=== PATIENT | female | born 1980 | race Caucasian/White ===

== ENCOUNTER 2017-11-26 20:27 | Emergency (ER) | payer MEDICAID ==
[~2017-11-26] VITALS: Ht 175.3 cm; Wt 73.0 kg
[2017-11-26 21:15] VITALS: BP 124/89
== END 2017-11-26 22:30 | disposition left against medical advice (07) ==
LOC: ER 20:27
DX: M25.531 Pain in right wrist (principal); R50.9 Fever, unspecified; Z53.21 Procedure and treatment not carried out due to patient leaving prior to being seen by health care provider; W45.8XXA Other foreign body or object entering through skin, initial encounter; Y93.89 Activity, other specified; Y92.89 Other specified places as the place of occurrence of the external cause; Y99.8 Other external cause status

== ENCOUNTER 2019-07-26 14:13 | Emergency (ER) | payer MEDICAID ==
[~2019-07-26] VITALS: Ht 177.8 cm; Wt 64.0 kg
[2019-07-26] MEDS ORDERED: LIDOCAINE 1% HCL (LOCAL ANESTH.) INJ 20ML MDV IJ ONE (16:45)
[2019-07-26] MEDS ORDERED: cefTRIAXone W LIDOCAINE 1 GM IM IM ONE (18:00)
[2019-07-26] MEDS ORDERED: cefTRIAXone SOD 1,000 MG VL ONE (18:17)
[2019-07-26 18:19] LABS: Basophils # (auto) 0 uL; Basophils % (auto) 0.9 % (0.0-2.0); Eosinophils # (auto) 0.1 uL; Eosinophils % (auto) 3.5 % (0.0-7.0); Hematocrit 37.5 % (36.0-46.0); Hemoglobin 12.7 g/dL (12.2-16.2); Lymphocytes # (auto) 1.3 uL; Lymphocytes % (auto) 31.1 % (10.0-50.0); Mean Corpuscular Hemoglobin 31.4 pg (28.0-32.0); Mean Corpuscular Hgb Conc. 33.8 g/dL (32.0-36.0); Mean Corpuscular Volume 93.2 fL (80.0-100.0); Monocytes # (auto) 0.4 uL; Monocytes % (auto) 9.3 % (0.0-12.0); Neutrophils # (auto) 2.3 uL; Neutrophils % (auto) 55.2 % (37.0-80.0); Nucleated Red Blood Cells % 0.1 %; Platelet Count (auto) 206 10^3/uL (140-450); Red Blood Cells 4.02 10^6/uL (4.0-5.20); Red Cell Distribution Width 12.8 % (11.8-14.3); White Blood Cell 4.2 10^3/uL (4.4-10.8)
[2019-07-26 18:54] LABS: Albumin 4.3 g/dL (3.4-5.0); BUN/Creatinine Ratio 10.5; Calcium 9.4 mg/dL (8.5-10.1); Potassium 4.1 mmol/L (3.5-5.1)
[2019-07-26 18:55] LABS: Salicylate 1.9 mg/dL (2.8-20.0)
[2019-07-26 18:56] LABS: Bilirubin, Total 0.4 mg/dL (0.2-1.0)
[2019-07-26 18:58] LABS: Acetaminophen < 2.0 ug/mL (10-30)
[2019-07-26 19:16] LABS: Urine Bacteria FEW /hpf (None Seen); Urine Blood Negative /uL (Negative); Urine Specific Gravity 1.005 (1.001-1.035); Urine WBC 1 /hpf (0 - 5)
[2019-07-26 19:17] VITALS: BP 130/81
[2019-07-26 19:27] LABS: Alcohol, Urine < 3.0 mg/dL (0-5); Amphetamine Screen, Urine NEGATIVE (NEGATIVE); Barbiturate Scree,Urine NEGATIVE (NEGATIVE); Benzodiazephine Screen, Urine NEGATIVE (NEGATIVE); Cannabinoid Screen, Urine NEGATIVE (NEGATIVE); Cocaine Screen, Urine NEGATIVE (NEGATIVE); Opiate Scree,Urine NEGATIVE (NEGATIVE); Phencyclidine Screen, Urine NEGATIVE (NEGATIVE)
== END 2019-07-26 20:04 | disposition home or self-care (01) ==
LOC: ER 14:13
DX: S51.821A Laceration with foreign body of right forearm, initial encounter (principal); X58.XXXA Exposure to other specified factors, initial encounter; Y93.89 Activity, other specified; Y99.8 Other external cause status; Y92.89 Other specified places as the place of occurrence of the external cause
CPT/HCPCS: 12031; 36415; 73090; 80053; 80307; 80329; 81001; 85025; 96372; 99284; J0696; 12001

== ENCOUNTER 2019-08-08 15:06 | Emergency (ER) | payer MEDICAID ==
[~2019-08-08] VITALS: Ht 177.8 cm; Wt 67.2 kg
[2019-08-08] MEDS ORDERED: LIDOCAINE HCL 2 % INJ 2ML MPF NEB ONE (18:45)
[2019-08-08] MEDS ORDERED: LIDOCAINE 1% HCL (LOCAL ANESTH.) INJ 20ML MDV ID ONE (20:00)
[2019-08-08] MEDS ORDERED: LORazepam 0.5 MG TAB PO ONE (20:00)
[2019-08-08] MEDS ORDERED: TETANUS-DIPTH-ACEL PERTUSSIS 0.5ML SYRG IM ONE (22:00)
[2019-08-08] MEDS ORDERED: cefTRIAXone SOD 1,000 MG VL IM ONE (22:45)
[2019-08-08] MEDS ORDERED: NEOMYCIN-BACITRACIN-POLYM UNITDOSE PKG TOP OINT TOP ONE (22:45)
[2019-08-08 23:28] LABS: Basophils # (auto) 0 uL; Basophils % (auto) 0.8 % (0.0-2.0); Eosinophils # (auto) 0.1 uL; Eosinophils % (auto) 3.8 % (0.0-7.0); Hematocrit 36.5 % (36.0-46.0); Hemoglobin 12.3 g/dL (12.2-16.2); Lymphocytes # (auto) 1.3 uL; Lymphocytes % (auto) 34.5 % (10.0-50.0); Mean Corpuscular Hemoglobin 31.6 pg (28.0-32.0); Mean Corpuscular Hgb Conc. 33.7 g/dL (32.0-36.0); Mean Corpuscular Volume 93.9 fL (80.0-100.0); Monocytes # (auto) 0.3 uL; Monocytes % (auto) 8.6 % (0.0-12.0); Neutrophils % (auto) 52.3 % (37.0-80.0); Nucleated Red Blood Cells % 0.1 %; Platelet Count (auto) 200 10^3/uL (140-450); Red Blood Cells 3.89 10^6/uL (4.0-5.20); White Blood Cell 3.8 10^3/uL (4.4-10.8)
[2019-08-08 23:49] LABS: Albumin 3.7 g/dL (3.4-5.0); BUN/Creatinine Ratio 9.9; Calcium 8.4 mg/dL (8.5-10.1); Magnesium 2.1 mg/dL (1.6-2.6); Potassium 3.5 mmol/L (3.5-5.1); Salicylate 1.9 mg/dL (2.8-20.0)
[2019-08-08 23:52] LABS: Bilirubin, Total 0.5 mg/dL (0.2-1.0); Total Protein 6.9 g/dL (6.4-8.2)
[2019-08-08 23:56] LABS: Acetaminophen < 2.0 ug/mL (10-30)
[2019-08-09 00:50] LABS: Urine Bacteria MOD /hpf (None Seen); Urine Blood Negative /uL (Negative); Urine Specific Gravity 1.008 (1.001-1.035); Urine WBC 1 /hpf (0 - 5)
[2019-08-09 01:07] LABS: Alcohol, Urine < 3.0 mg/dL (0-5); Amphetamine Screen, Urine NEGATIVE (NEGATIVE); Barbiturate Scree,Urine NEGATIVE (NEGATIVE); Benzodiazephine Screen, Urine NEGATIVE (NEGATIVE); Cannabinoid Screen, Urine NEGATIVE (NEGATIVE); Cocaine Screen, Urine NEGATIVE (NEGATIVE); Opiate Scree,Urine NEGATIVE (NEGATIVE); Phencyclidine Screen, Urine NEGATIVE (NEGATIVE)
[2019-08-09] MEDS ORDERED: BENZTROPINE MESY 0.5 MG TAB PO ONE (22:00)
[2019-08-09] MEDS ORDERED: OLANZapine 5 MG TAB PO ONE (22:00)
[2019-08-10] MEDS ORDERED: LORazepam 0.5 MG TAB ONE (00:35)
[2019-08-10] MEDS ORDERED: LORazepam 0.5 MG TAB PO ONE (01:00)
[2019-08-10 15:22] VITALS: BP 122/66
== END 2019-08-10 15:56 | disposition psychiatric hospital, planned readmission (93) ==
LOC: ER 15:06 → EDBD 15:06 → ER 08-10 15:56
DX: S50.851A Superficial foreign body of right forearm, initial encounter (principal); F32.9 Major depressive disorder, single episode, unspecified; F20.9 Schizophrenia, unspecified; W45.8XXA Other foreign body or object entering through skin, initial encounter; Y93.89 Activity, other specified; Y99.8 Other external cause status; Y92.89 Other specified places as the place of occurrence of the external cause
CPT/HCPCS: 10120; 36415; 73090; 80053; 80307; 80329; 81001; 81025; 83735; 85025; 90715; 94761; 96372; 99291; J0696; J2001

== ENCOUNTER → 2019-12-28 | Emergency (ER) | payer MEDICAID ==
[~2019-12-28] VITALS: Ht 172.7 cm; Wt 85.7 kg
[~2019-12-28] MED LIST: ACETAMINOPHEN 500 MG TAB PO ONE; DOCU1CAP31 PO; FAMO-12 PO; LAMO200T34 PO; MIRT1TAB38 PO; OLAN20TA30 PO; RISP2TAB62 PO
[2019-12-28 18:41] LABS: Basophils # (auto) 0 10 ^3/uL (0-0.2); Basophils % (auto) 0.7 % (0.0-2.0); Eosinophils # (auto) 0.3 10 ^3/uL (0-0.8); Eosinophils % (auto) 5.4 % (0.0-7.0); Hematocrit 39.9 % (36.0-46.0); Hemoglobin 13.5 g/dL (12.2-16.2); Lymphocytes # (auto) 1.2 10 ^3/uL (0.4-5.4); Mean Corpuscular Hemoglobin 31.9 pg (28.0-32.0); Mean Corpuscular Hgb Conc. 33.8 g/dL (32.0-36.0); Mean Corpuscular Volume 94.4 fL (80.0-100.0); Monocytes # (auto) 0.5 10 ^3/uL (0-1.3); Monocytes % (auto) 8.9 % (0.0-12.0); Neutrophils # (auto) 3.2 10 ^3/uL (1.6-8.6); Nucleated Red Blood Cells % 0.1 %; Platelet Count (auto) 199 10^3/uL (140-450); Red Blood Cells 4.22 10^6/uL (4.0-5.20); Red Cell Distribution Width 13.1 % (11.8-14.3); White Blood Cell 5.2 10^3/uL (4.4-10.8)
[2019-12-28 18:58] LABS: Anion Gap 4 (5-15); Blood Urea Nitrogen 12 mg/dL (7-18); Calcium 8.9 mg/dL (8.5-10.1); Carbon Dioxide 26 mmol/L (21-32); Chloride 108 mmol/L (98-107); Glucose 83 mg/dL (74-106); Potassium 3.9 mmol/L (3.5-5.1); Sodium 138 mmol/L (136-145)
[2019-12-28 19:00] LABS: BUN/Creatinine Ratio 14.6; Blood Alcohol < 3.0 mg/dL (0-5); GFR African American 100 mL/min; GFR Non-African American 82 mL/min
[2019-12-28 19:07] LABS: Salicylate 2.8 mg/dL (2.8-20.0)
[2019-12-28 19:20] LABS: Acetaminophen < 2.0 ug/mL (10-30)
[2019-12-29 00:40] LABS: Alcohol, Urine < 3.0 mg/dL (0-5); Amphetamine Screen, Urine NEGATIVE (NEGATIVE); Barbiturate Scree,Urine NEGATIVE (NEGATIVE); Benzodiazephine Screen, Urine NEGATIVE (NEGATIVE); Cannabinoid Screen, Urine NEGATIVE (NEGATIVE); Cocaine Screen, Urine NEGATIVE (NEGATIVE); Opiate Scree,Urine NEGATIVE (NEGATIVE); Phencyclidine Screen, Urine NEGATIVE (NEGATIVE)
[2020-01-01 09:25] VITALS: BP 134/81
== END | disposition home or self-care (01) ==
LOC: EDUNIT# 17:18 → EDBD 17:29 → ER 17:29
DX: R45.851 Suicidal ideations (principal); S61.511A Laceration without foreign body of right wrist, initial encounter; F31.9 Bipolar disorder, unspecified; F20.9 Schizophrenia, unspecified; X83.8XXA Intentional self-harm by other specified means, initial encounter; Y93.89 Activity, other specified; Y92.89 Other specified places as the place of occurrence of the external cause; Y99.8 Other external cause status
CPT/HCPCS: 36415; 80048; 80307; 80320; 80329; 85025

== ENCOUNTER → 2022-11-14 | Outpatient (CLI) | payer MEDICAID ==
[~2022-11-14] VITALS: Ht 177.8 cm; Wt 72.6 kg
[~2022-11-14] MED LIST changes: -ACETAMINOPHEN 500 MG TAB PO ONE; +ADENOSINE 61 MG in GIVE UN-DILUTED 0 ML IV ONE; +ADENOSINE 90 MG/30 ML INJ IV ONE; +DOCU1CAP22 PO; -DOCU1CAP31 PO
== END | disposition home or self-care (01) ==
LOC: Rad HDHVI 09:23
PROVIDERS: ATTEND Internal Medicine Cardiovascular Disease
DX: Z01.810 Encounter for preprocedural cardiovascular examination (principal); F17.210 Nicotine dependence, cigarettes, uncomplicated
CPT/HCPCS: 78452; 93005; 96374; 96375; A9500; J0153

== ENCOUNTER → 2022-11-16 | Outpatient (CLI) | payer MEDICAID ==
[~2022-11-16] MED LIST changes: -ADENOSINE 61 MG in GIVE UN-DILUTED 0 ML IV ONE; -ADENOSINE 90 MG/30 ML INJ IV ONE
== END | disposition home or self-care (01) ==
LOC: Rad HDHVI 15:56
PROVIDERS: ATTEND Internal Medicine Cardiovascular Disease
DX: Z01.818 Encounter for other preprocedural examination (principal)
CPT/HCPCS: 93306

== ENCOUNTER 2025-05-13 15:12 | Emergency (ER) | payer MEDICAID ==
[~2025-05-13] VITALS: Ht 177.8 cm; Wt 61.5 kg
[~2025-05-13 15:12] MED LIST changes: +DOCU-209 PO; -DOCU1CAP22 PO; +OLAN1TAB75 PO; -OLAN20TA30 PO
[2025-05-13 15:14] VITALS: BP 146/84; PULSE 85; RESP 18; TEMP 98; O2SAT 97
[2025-05-13 15:52] LABS: Urine Budding Yeast OCCASIONAL /hpf (None Seen); Urine Protein, UAD Negative (Negative)
--- NOTE | 2025-05-13 16:20 | ED.PDOC ---
History of Present Illness HPI Comments This patient is a pleasant 45 y/o F, with PMHx of bipolar disorder, anxiety, and schizophrenia presents to the ED for CC of anorexia and mild weakness. Patient reports, that she lives in an in retirement and has been unable to eat d/t not having healthy options for the past three days. Patient presented with retirement staff, stated they would like patient to be evaluated for any physiologic concerns. Patient denies suicidal ideations, homicidal ideations, or auditory/visual hallucinations. No other symptoms or modifying factors present at this time. Vital signs were stable on arrival. Chief Complaint: Mental Health Time Seen by MD: 16:00 Primary Care Provider: THIAGOK Reviewed Notes: Nurses Notes, Medications, Allergies Allergies: Coded Allergies: NO KNOWN ALLERGIES (Unverified , 12/28/19) Home Meds Reported Medications Famotidine (Famotidine) 20 Mg Tab, 20 MG PO DAILY 12/30/19 Lamotrigine (Lamotrigine) 200 Mg Tab, 200 MG PO DAILY 12/30/19 Docusate Sodium (Dok) 100 Mg Cap, 100 MG PO DAILY 12/30/19 Mirtazapine (Mirtazapine Oral Disintegrating Tablet) 15 Mg Tab, 15 MG PO DAILY 12/30/19 Risperidone (Risperidone) 2 Mg Tab, 2 MG PO DAILY 12/30/19 Olanzapine (OLANZAPINE) 20 Mg Tab, 10 MG PO DAILY 12/30/19 Information Source: Patient, Scroll Assembler Mode of Arrival: Ambulatory Severity: Mild Timing: Days Duration: Since onset Prehospital treatment: None Past Medical History PAST MEDICAL HISTORY: Anxiety, Depression, Schizophrenia Surgical History: 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 Family History Family History: Unobtainable Social History Smoker: Cigarettes Alcohol: Denies ETOH Use Drugs: Denies Drug Use Lives In: Other Constitutional: reports: weakness; denies: chills, diaphoresis, fatigue, fever, malaise, sweats, others EENTM: denies: blurred vision, double vision, ear bleeding, ear discharge, ear drainage, ear pain, ear ringing, eye pain, eye redness, hearing loss, mouth pain, mouth swelling, nasal discharge, nose bleeding, nose congestion, nose pain, photophobia, tearing, throat pain, throat swelling, voice changes, others Respiratory: denies: cough, hemoptysis, orthopnea, SOB at rest, shortness of breath, SOB with excertion, stridor, wheezing, others Cardiovascular: denies: chest pain, dizzy spells, diaphoresis, Dyspnea on exertion, edema, irregular heart beat, left arm pain, lightheadedness, palpitations, PND, syncope, others Gastrointestinal: reports: poor appetite; denies: abdomen distended, abdominal pain, blood streaked bowels, constipated, diarrhea, dysphagia, difficulty swallowing, hematemesis, melena, nausea, poor fluid intake, rectal bleeding, rectal pain, vomiting, others Genitourinary: denies: abnormal vagina bleeding, burning, dyspareunia, dysuria, flank pain, frequency, hematuria, incontinence, pain, , vagina discharge, urgency, others Neurological: denies: dizziness, fainting, headache, left sided numbness, left sided weakness, numbness, paresthesia, pre-existing deficit, right sided numbness, right sided weakness, seizure, speech problems, tingling, tremors, weakness, others Musculoskeletal: denies: back pain, gout, joint pain, joint swelling, muscle pain, muscle stiffness, neck pain, others Integumetry: denies: bruises, change in color, change in hair/nails, dryness, laceration, lesions, lumps, rash, wounds, others Allergic/Immunocompromised: denies: Difficulty Healing, Frequent Infections, Hives, Itching, others Hematologic/Lymphatic: denies: anemia, blood clots, easy bleeding, easy bruising, swollen glands, others Endocrine: denies: excessive hunger, excessive sweating, excessive thirst, excessive urination, flushing, intolerance to cold, intolerance to heat, unexplained weight gain, unexplained weight loss, others Psychiatric: denies: anxiety, bipolar disorder, depression, hopeless, panic disorder, schizophrenia, sleepless, suicidal, others All Other Systems: Reviewed and Negative Physical Exam General Appearance: No Apparent Distress (Patient is seen mildly lethargic but was in no distress.), Normal HEENT: Normal ENT Inspection, Pharynx Normal, TMs Normal Neck: Full Range of Motion, Non-Tender, Normal, Normal Inspection Respiratory: Chest Non-Tender, Lungs Clear, No Accessory Muscle Use, No Respiratory Distress, Normal Breath Sounds Cardiovascular: No Edema, No JVD, No Murmur, No Gallop, Normal Peripheral Pulses, Regular Rate/Rhythm Breast Exam: Deferred Gastrointestinal: No Organomegaly, Non Tender, No Pulsatile Mass, Normal Bowel Sounds, Soft Genitalia: Deferred Pelvic: Deferred Rectal: Deferred Extremities: No calf tenderness, Normal capillary refill, Normal inspection, Normal range of motion, Non-tender, No pedal edema Neurologic: Alert Cerebellar Function: NOT DONE Reflexes: NOT DONE Skin: Dry, Normal Color, Warm Lymphatic: No Adenopathy Was a procedure done? Was a procedure done?: No Differential Dx Considerations may include: Anorexia, dehydration, electrolyte abnormality, sepsis, UTI X-Ray, Labs, Meds, VS Vital Signs Date Time Temp Pulse Resp B/P (MAP) Pulse Ox O2 Delivery O2 Flow Rate FiO2 05/13/25 15:14 98.0 85 18 146/84 97 98.0 Lab Test 05/13/25 15:58 05/13/25 15:23 Range/Units White Blood Count 5.3 4.4-10.8 10^3/uL Red Blood Count 4.13 4.0-5.20 10^6/uL Hemoglobin 12.9 12.2-16.2 g/dL Hematocrit 38.4 36.0-46.0 % Mean Corpuscular Volume 93.1 80.0-100.0 fL Mean Corpuscular Hemoglobin 31.3 28.0-32.0 pg Mean Corpuscular Hemoglobin Concent 33.6 32.0-36.0 g/dL Red Cell Distribution Width 13.1 11.8-14.3 % Platelet Count 227 140-450 10^3/uL Mean Platelet Volume 8.8 6.9-10.8 fL Neutrophils (%) (Auto) 67.2 37.0-80.0 % Lymphocytes (%) (Auto) 20.1 10.0-50.0 % Monocytes (%) (Auto) 8.4 0.0-12.0 % Eosinophils (%) (Auto) 4.2 0.0-7.0 % Basophils (%) (Auto) 0.1 0.0-2.0 % Neutrophils # (Auto) 3.6 1.6-8.6 10 ^3/uL Lymphocytes # (Auto) 1.1 0.4-5.4 10 ^3/uL Monocytes # (Auto) 0.4 0-1.3 10 ^3/uL Eosinophils # (Auto) 0.2 0-0.8 10 ^3/uL Basophils # (Auto) 0 0-0.2 10 ^3/uL Nucleated Red Blood Cells 0.0 % Sodium Level 138 136-145 mmol/L Potassium Level 4.6 3.5-5.1 mmol/L Chloride Level 106 98-107 mmol/L Carbon Dioxide Level 24 20-31 mmol/L Anion Gap 8 5-15 Blood Urea Nitrogen 9 9-23 mg/dL Creatinine 0.96 0.550-1.02 mg/dL Glomerular Filtration Rate Calc 74 >90 mL/min BUN/Creatinine Ratio 9.4 L 10.0-20.0 Serum Glucose 81 74-106 mg/dL Calcium Level 10.3 8.7-10.4 mg/dL Urine Color Light-yellow Yellow Urine Clarity Turbid H Clear Urine pH 5.5 5.0-9.0 Urine Specific [place] 1.005 1.001-1.035 Urine Protein Negative Negative Urine Ketones Negative Negative Urine Blood Negative Negative /uL Urine Nitrite Negative Negative Urine Bilirubin Negative Negative Urine Urobilinogen Normal Negative mg/dL Urine Leukocyte Esterase Negative Negative /uL Urine RBC <1 0 - 4 /hpf Urine Microscopic WBC 1 0-5 /HPF Urine Squamous Epithelial Cells Few <5 /hpf Urine Bacteria Few H None Seen /hpf Urine Yeast (Budding) Occasional None Seen /hpf Urine Glucose Normal Normal mg/dL X-Ray, Labs, Meds, VS Comment All studies performed the ED were evaluated by me personally. Laboratories and urinalysis were unremarkable for any systemic concerns. Spent time discussing the patient's concerns with her and her case management. Advised the case investigator that the patient needs to have food options that she finds acceptable, or she had will continued not to eat. Advised patient that she needs to hydrate consistently in reflective of food intake. Advised that she try to consumed any foods that she can tolerate in the event of general meal preparation not being acceptable. Ct Mri Technologist states that the patient has mental health support at the facility. Time of 1ST Reevaluation: 18:46 Reevaluation 1ST: Improved Consultation: PCP, Psychiatry Patient Education/Counseling: Diagnosis, Treatment Family Education/Counseling: Diagnosis, Treatment, No Family Present SEPSIS Sepsis Screen Date sepsis recognized/suspect: May 13, 2025 Time Sepsis recognized/suspect: 1515 Recent Procedure: No On Antibiotic Therapy: No Respiratory Rate >20: No Heart Rate >90: No Temp<36 C (96.8 F) or >38.3 C: No SBP <90 or MAP <65 mmHG: No New Acute Mental Status Change: No Is the patient on CPAP, BIPAP,: No Physician Orders Heplock Iv (05/13/25 ) Vital Signs Date Time Temp Pulse Resp B/P (MAP) Pulse Ox O2 Delivery O2 Flow Rate FiO2 05/13/25 15:14 98.0 85 18 146/84 97 98.0 Laboratory Tests Test 05/13/25 15:58 White Blood Count 5.3 10^3/uL (4.4-10.8) Departure 1 Departure Time of Disposition: 18:47 Impression: Primary Impression: Anorexia Disposition: HOME / SELF CARE / HOMELESS Condition: Stable Additional Instructions: Advised supervisor type photography to have food options available for the patient moving forward. Additionally, advised patient receive a psychiatric evaluation. Discharged With: Self, Scroll Assembler Critical Care Note Critical Care Time?: No Stability Stability form required: No Heart Score Heart Score: Heart Score Response (Comments) Value History N/A 0 EKG N/A 0 Age N/A 0 Risk Factors N/A 0 Troponin N/A 0 Total 0 I personally scribed for HECTOR MIRANDA PAC ([email or web address]) on 05/13/25 at 16:20. Electronically submitted by Carina Canela ([email or web address]). HECTOR MIRANDA PAC May 13, 2025 16:20
[2025-05-13 16:26] LABS: Hematocrit 38.4 % (36.0-46.0); Hemoglobin 12.9 g/dL (12.2-16.2); Mean Corpuscular Hemoglobin 31.3 pg (28.0-32.0); Mean Corpuscular Volume 93.1 fL (80.0-100.0); Nucleated Red Blood Cells % 0.0 %
[2025-05-13 16:37] LABS: Chloride 106 mmol/L (98-107); Potassium 4.6 mmol/L (3.5-5.1); Sodium 138 mmol/L (136-145)
[2025-05-13 16:38] LABS: Anion Gap 8 (5-15); Carbon Dioxide 24 mmol/L (20-31)
[2025-05-13 16:39] LABS: Calcium 10.3 mg/dL (8.7-10.4)
[2025-05-13 16:43] LABS: BUN/Creatinine Ratio 9.4 (10.0-20.0); Glucose 81 mg/dL (74-106)
[2025-05-13 16:44] LABS: Blood Urea Nitrogen 9 mg/dL (9-23)
--- NOTE | 2025-05-13 19:23 | DVHINCON2 ---
Date of Service if different f: May 13, 2025 Consultation ([facility]) Labs Laboratory Tests Test 05/13/25 15:23 05/13/25 15:58 Urine Color Light-yellow (Yellow) Urine Clarity Turbid (Clear) Urine pH 5.5 (5.0-9.0) Urine Specific [place] 1.005 (1.001-1.035) Urine Protein Negative (Negative) Urine Ketones Negative (Negative) Urine Blood Negative /uL (Negative) Urine Nitrite Negative (Negative) Urine Bilirubin Negative (Negative) Urine Urobilinogen Normal mg/dL (Negative) Urine Leukocyte Esterase Negative /uL (Negative) Urine RBC <1 /hpf (0 - 4) Urine Microscopic WBC 1 /HPF (0-5) Urine Squamous Epithelial Cells Few /hpf (<5) Urine Bacteria Few /hpf (None Seen) Urine Yeast (Budding) Occasional /hpf (None Urine Glucose Normal mg/dL (Normal) White Blood Count 5.3 10^3/uL (4.4-10.8) Red Blood Count 4.13 10^6/uL (4.0-5.20) Hemoglobin 12.9 g/dL (12.2-16.2) Hematocrit 38.4 % (36.0-46.0) Mean Corpuscular Volume 93.1 fL (80.0-100.0) Mean Corpuscular Hemoglobin 31.3 pg (28.0-32.0) Mean Corpuscular Hemoglobin Concent 33.6 g/dL (32.0-36.0) Red Cell Distribution Width 13.1 % (11.8-14.3) Platelet Count 227 10^3/uL (140-450) Mean Platelet Volume 8.8 fL (6.9-10.8) Neutrophils (%) (Auto) 67.2 % (37.0-80.0) Lymphocytes (%) (Auto) 20.1 % (10.0-50.0) Monocytes (%) (Auto) 8.4 % (0.0-12.0) Eosinophils (%) (Auto) 4.2 % (0.0-7.0) Basophils (%) (Auto) 0.1 % (0.0-2.0) Neutrophils # (Auto) 3.6 10 ^3/uL (1.6-8.6) Lymphocytes # (Auto) 1.1 10 ^3/uL (0.4-5.4) Monocytes # (Auto) 0.4 10 ^3/uL (0-1.3) Eosinophils # (Auto) 0.2 10 ^3/uL (0-0.8) Basophils # (Auto) 0 10 ^3/uL (0-0.2) Nucleated Red Blood Cells 0.0 % Sodium Level 138 mmol/L (136-145) Potassium Level 4.6 mmol/L (3.5-5.1) Chloride Level 106 mmol/L (98-107) Carbon Dioxide Level 24 mmol/L (20-31) Anion Gap 8 (5-15) Blood Urea Nitrogen 9 mg/dL (9-23) Creatinine 0.96 mg/dL (0.550-1.02) Glomerular Filtration Rate Calc 74 mL/min (>90) BUN/Creatinine Ratio 9.4 (10.0-20.0) Serum Glucose 81 mg/dL (74-106) Calcium Level 10.3 mg/dL (8.7-10.4) Appetite: Fair Appearance: Stated age, Disheveled Psychomotor activity: WNL Behavioral: Cooperative Eye contact: Appropriate Affect: Blunted Mood: Neutral Thought processes: Linear/Goal-directed Thought content: WNL Suicidal ideations: Absent Homicidal ideations: Absent Orientation: Person, Place, Time, Situation Memory intact: Recent Intellect: Average Abstractability: Marginal Concentration: Adequate Attention: Adequate Judgement: Marginal Insight: Poor Vitals Vital Signs Date Time Temp Pulse Resp B/P (MAP) Pulse Ox O2 Delivery O2 Flow Rate FiO2 05/13/25 15:14 98.0 85 18 146/84 97 98.0 Treatment plan discussed: With staff Medication adjusted: No Diagnosis: hx of schizophrenia, r/o developmental disorders Plan : Patient presently denies Si/Hi. She wants to return to [facility] facility and plans to eat salad and noodles upon her return. She is complaint with psychotropic medications and plans to continue Patient may discharge back to facility after medical clearance Continue psychotropic medications and outpatient mental health services History of Present Illness Reason for Consult : Patient not eating HPI : This is a 45-year-old female with prior diagnosis of schizophrenia. She presents here from a board and care facility after not eating for some days. Patient is evaluated via telepsychiatry. she reports not eating recently because the menu was changed yesterday due to vote by other residents. She reports prefers to eat salad, yogurt, fruits and other healthier foods. She also reports having hx of eating disorder, but she is eating. She reports eating today at day program. She denies hx of schizophrenia and reports only depression and anxiety. She also denies suicidal/homicidal ideation. She denies feeling depressed, hopeless or anhedonia. She denies auditory/visual hallucinations or paranoid thoughts. She denies auditory/visual hallucinations or paranoid thoughts. No signs of responding to unseen stimuli. Per board and care staff, she does not eat regular meals. She often skips breakfast or dinner. Past Psychiatric History : She reports hx of depression and anxiety. She is complaint with her antipsychotic medications. She reports hx of conservatorship in [place] and [facility]. She denies hx of suicide attempts Past Medical History : She denies Social History : She is living at facility for 2 years. She is single and receives SSI disability. she denies substance use including alcohol or marijuana use. MARY MILES DNP May 13, 2025 19:23
[2025-05-13] MEDS: SODIUM CHLORIDE 0.9% 1,000 ML IV ONE (20:12)
== END 2025-05-13 20:14 | disposition home or self-care (01) ==
LOC: ER 15:12
DX: R63.0 Anorexia (principal); R53.1 Weakness; F31.9 Bipolar disorder, unspecified; F20.9 Schizophrenia, unspecified; F41.9 Anxiety disorder, unspecified; F17.210 Nicotine dependence, cigarettes, uncomplicated; Z79.899 Other long term (current) drug therapy
CPT/HCPCS: 36415; 80048; 81001; 85025